=== PATIENT | female | born 1945 | race Caucasian/White ===

== ENCOUNTER → 2022-02-03 | Outpatient (CLI) | payer MEDICARE, BC | LOC: M RAD 09:30 | PROVIDERS: ATTEND Family Medicine | DX: R60.9 Edema, unspecified (principal) ==

== ENCOUNTER → 2024-05-11 | Outpatient (CLI) | payer MEDICARE, BC | LOC: M RAD 11:43 | PROVIDERS: ATTEND Urology | DX: N39.41 Urge incontinence (principal); N28.89 Other specified disorders of kidney and ureter ==

== ENCOUNTER → 2024-10-23 | Outpatient (REF) | payer MEDICARE, BC ==
[~2024-10-23] MED LIST: AMLO1TAB24; BACTDSTA; CLOP75TA2; COLA100C5 PO; DOXY100C3; GABA-1490; LEFL20TA15; METH-855; MIRA3350 PO; PANT40TA29; PRED10TA2
[2024-10-23 18:30] LABS: APPEARANCE, URINE CLOUDY (CLEAR); BACTERIA, URINE AUTO 1+ (NEGATIVE); BILIRUBIN, URINE AUTO NEGATIVE (NEGATIVE); BLOOD, URINE BLOOD NEGATIVE (NEGATIVE); COLOR, URINE YELLOW (YELLOW); GLUCOSE, URINE (UA) AUTO NEGATIVE (NEGATIVE); KETONE, URINE AUTO TRACE mg/dL (NEGATIVE); LEUKOCYTE ESTERASE, URINE AUTO 3+ (NEGATIVE); MUCUS, URINE SMALL (NEGATIVE); NITRITE, URINE AUTO POSITIVE (NEGATIVE); PROTEIN, URINE AUTO NEGATIVE (NEGATIVE); RBC, URINE AUTO 2 /HPF (0-3); SPECIFIC GRAVITY URINE AUTO 1.006 (1.002-1.035); SQUAMOUS EPITHELIAL CELL UR AU 0 /HPF (0-6); UROBILINOGEN, URINE AUTO 0.2 mg/dL (0.0-2.0); WBC, URINE AUTO TNTC /HPF (0-3)
== END ==
LOC: M SMT 17:19
PROVIDERS: ATTEND Urology
DX: R33.9 Retention of urine, unspecified (principal)

== ENCOUNTER 2024-10-29 11:20 | Emergency (ER) | payer MEDICARE, BC ==
[~2024-10-29] VITALS: Ht 167.6 cm; Wt 81.0 kg
[2024-10-29] MEDS ORDERED: METH-855 (11:45)
[2024-10-29] MEDS ORDERED: AMLO1TAB24 (11:45)
[2024-10-29] MEDS ORDERED: PANT40TA29 (11:45)
[2024-10-29] MEDS ORDERED: BACTDSTA (11:45)
[2024-10-29] MEDS ORDERED: CLOP75TA2 (11:45)
[2024-10-29] MEDS ORDERED: DOXY100C3 (11:45)
[2024-10-29] MEDS ORDERED: LEFL20TA15 (11:45)
[2024-10-29] MEDS ORDERED: PRED10TA2 (11:45)
[2024-10-29] MEDS ORDERED: GABA-1490 (11:45)
[2024-10-29 12:12] LABS: BASO # 0.1 10^3/uL (0.0-0.2); BASO % 0.9 % (0.0-1.0); EOS % 0.5 % (0.0-3.0); HEMATOCRIT 38.4 % (36.0-47.0); HEMOGLOBIN 12.8 g/dl (12.0-15.5); LYMPH # 1.7 10^3/uL (1.5-5.0); LYMPH % 22.2 % (24.0-44.0); MEAN CORPUSCULAR HEMOGLOBIN 30.8 pg (27.0-33.0); MEAN CORPUSCULAR HGB CONC 33.3 g/dl (32.0-36.5); MEAN CORPUSCULAR VOLUME 92.3 fl (80.0-96.0); MONO % 13.2 % (2.0-8.0); NEUTROPHILS # 4.7 10^3/uL (1.5-8.5); NEUTROPHILS % 62.9 % (36.0-66.0); PLATELET COUNT, AUTOMATED 339 10^3/uL (150-450); RED BLOOD COUNT 4.16 10^6/uL (4.00-5.40); WHITE BLOOD COUNT 7.4 10^3/uL (4.0-10.0)
[2024-10-29 12:40] LABS: LIPASE 29 U/L (12-53)
[2024-10-29 13:02] LABS: ALBUMIN 3.5 G/DL (3.2-5.2); ALKALINE PHOSPHATASE 75 U/L (35-104); ALT/SGPT 21 U/L (7.0-40); AST/SGOT 22 U/L (<34); BILIRUBIN,DIRECT < 0.1 MG/DL (<0.4); BILIRUBIN,TOTAL 0.3 MG/DL (0.3-1.2); TOTAL PROTEIN 6.8 G/DL (5.7-8.2)
[2024-10-29 13:44] LABS: FREE T4 1.19 NG/DL (0.89-1.76); THYROID STIMULATING HORMONE 2.387 uIU/ML (0.55-4.78)
[2024-10-29 13:46] LABS: KETONE, URINE AUTO RFX NEGATIVE (NEGATIVE); LEUKOCYTE ESTERASE UR AUTO RFX NEGATIVE (NEGATIVE); MUCUS, URINE RFX SMALL (NEGATIVE); NITRITE, URINE AUTO RFX NEGATIVE (NEGATIVE); RBC, URINE AUTO RFX 1 /HPF (0-3); SQUAM EPITHELIAL CELL UR AURFX 0 /HPF (0-6); WBC, URINE AUTO RFX 4 /HPF (0-3)
[2024-10-29 14:09] VITALS: BP 135/72
[2024-10-29 14:20] VITALS: O2SAT 95
[2024-10-29 14:39] VITALS: TEMP 97.2
[2024-10-29] MEDS ORDERED: MIRA3350 PO (14:41)
[2024-10-29] MEDS ORDERED: COLA100C5 PO (14:41)
== END 2024-10-29 15:04 | disposition home or self-care (01) ==
LOC: M ED 11:20 → EDBD 11:20 → M ED 15:04
DX: R55 Syncope and collapse (principal); K59.00 Constipation, unspecified; W19.XXXA Unspecified fall, initial encounter; E78.5 Hyperlipidemia, unspecified; K91.5 Postcholecystectomy syndrome; Z86.73 Personal history of transient ischemic attack (TIA), and cerebral infarction without residual deficits; Z79.899 Other long term (current) drug therapy; Z79.52 Long term (current) use of systemic steroids; Y99.9 Unspecified external cause status

== ENCOUNTER → 2024-12-05 | Outpatient (REF) | payer MEDICARE, BC ==
[2024-12-05 17:36] LABS: APPEARANCE, URINE CLOUDY (CLEAR); BACTERIA, URINE AUTO 1+ (NEGATIVE); BILIRUBIN, URINE AUTO NEGATIVE (NEGATIVE); BLOOD, URINE BLOOD 2+ (NEGATIVE); COLOR, URINE YELLOW (YELLOW); GLUCOSE, URINE (UA) AUTO NEGATIVE (NEGATIVE); KETONE, URINE AUTO NEGATIVE (NEGATIVE); LEUKOCYTE ESTERASE, URINE AUTO 3+ (NEGATIVE); MUCUS, URINE SMALL (NEGATIVE); NITRITE, URINE AUTO POSITIVE (NEGATIVE); PROTEIN, URINE AUTO 1+ mg/dL (NEGATIVE); RBC, URINE AUTO 14 /HPF (0-3); SPECIFIC GRAVITY URINE AUTO 1.023 (1.002-1.035); SQUAMOUS EPITHELIAL CELL UR AU 3 /HPF (0-6); UROBILINOGEN, URINE AUTO 0.2 mg/dL (0.0-2.0); WBC, URINE AUTO TNTC /HPF (0-3)
== END ==
LOC: M SMT 16:56
PROVIDERS: ATTEND Urology
DX: R33.9 Retention of urine, unspecified (principal)

== ENCOUNTER 2025-03-19 17:19 | Inpatient (IN) | payer MEDICARE, BC ==
[~2025-03-19] VITALS: Ht 167.6 cm; Wt 81.8 kg
[~2025-03-19 17:19] MED LIST changes: -AMLO1TAB24; +AMLO1TAB24 PO; +CEVI1CAP PO; -CLOP75TA2; +CLOP75TA2 PO; +DOCU100C16 PO; +DONE10TA90 PO; +FLUTISP NARES; -GABA-1490; +GABA-1490 PO; +HYDR-3713 PO; -LEFL20TA15; +LEFL20TA15 PO; +LEVO1TAB39 PO; -METH-855; +METH-855 PO; +MULTTAB61 PO; -PANT40TA29; +PANT40TA29 PO; +POLY510P14; +PRES1CAP PO; +ROSU10TA61 PO; +ZINC25CA2 PO
[2025-03-19 18:57] LABS: BASO # 0.1 10^3/uL (0.0-0.2); BASO % 1.2 % (0.0-1.0); EOS # 0.1 10^3/uL (0.0-0.5); EOS % 2.2 % (0.0-3.0); LYMPH # 1.0 10^3/uL (1.5-5.0); LYMPH % 19.8 % (24.0-44.0); MONO # 0.8 10^3/uL (0.0-0.8); MONO % 15.0 % (2.0-8.0); NEUTROPHILS # 3.1 10^3/uL (1.5-8.5); NEUTROPHILS % 61.6 % (36.0-66.0); PLATELET COUNT, AUTOMATED 336 10^3/uL (150-450)
[2025-03-19 19:32] LABS: CALCIUM LEVEL 8.6 MG/DL (8.3-10.6); CARBON DIOXIDE LEVEL 29 MMOL/L (20-31); CHLORIDE LEVEL 97 MMOL/L (98-107); CREATININE FOR GFR 0.56 MG/DL (0.55-1.30); GLOMERULAR FILTRATION RATE > 90.0 (>32); POTASSIUM SERUM 4.3 MMOL/L (3.5-5.1); SODIUM LEVEL 134 MMOL/L (136-145)
[2025-03-19 19:37] LABS: KETONE, URINE AUTO RFX NEGATIVE (NEGATIVE); LEUKOCYTE ESTERASE UR AUTO RFX 1+ (NEGATIVE); NITRITE, URINE AUTO RFX NEGATIVE (NEGATIVE); RBC, URINE AUTO RFX 3 /HPF (0-3); SQUAM EPITHELIAL CELL UR AURFX 1 /HPF (0-6); WBC, URINE AUTO RFX 3 /HPF (0-3)
[2025-03-19] MEDS ORDERED: ACET-897 PO (22:53)
[2025-03-19] MEDS ORDERED: CLOP75TA99 PO (22:53)
[2025-03-19] MEDS ORDERED: OYST1TAB PO (22:53)
[2025-03-19] MEDS ORDERED: NYST0.1C TOP (22:53)
[2025-03-19] MEDS ORDERED: ASCO500T PO (22:53)
[2025-03-19] MEDS ORDERED: HOME MED LIST COMPLETE! XX SCH (22:55)
[2025-03-20] MEDS ORDERED: FLUTICASONE PROPIONATE 0.05% NASAL SPRAY 16 GM NARES PRN (00:20)
[2025-03-20] MEDS ORDERED: MAALOX 30 ML SUSP *UDC PO PRN (00:20)
[2025-03-20] MEDS ORDERED: MOM 30 ML SUSPENSION UDC PO PRN (00:20)
[2025-03-20] MEDS ORDERED: NYSTATIN CREAM 15 GM TOP PRN (00:20)
[2025-03-20] MEDS ORDERED: ACETAMINOPHEN 325 MG TAB PO PRN (00:20)
[2025-03-20 06:40] LABS: PLATELET COUNT, AUTOMATED 337 10^3/uL (150-450)
[2025-03-20 07:15] LABS: ALT/SGPT 14 U/L (7.0-40); AST/SGOT 20 U/L (<34); CALCIUM LEVEL 9.3 MG/DL (8.3-10.6); CARBON DIOXIDE LEVEL 30 MMOL/L (20-31); CHLORIDE LEVEL 98 MMOL/L (98-107); CREATININE FOR GFR 0.53 MG/DL (0.55-1.30); GLOMERULAR FILTRATION RATE > 90.0 (>32); MAGNESIUM LEVEL 1.9 MG/DL (1.8-2.4); POTASSIUM SERUM 4.2 MMOL/L (3.5-5.1); SODIUM LEVEL 137 MMOL/L (136-145)
[2025-03-20] MEDS: OYSTER SHELL CALCIUM 500 MG TAB PO SCH (09:11)
[2025-03-20] MEDS: METHENAMINE HIPPURATE 1 GM TABLET PO SCH (09:11)
[2025-03-20] MEDS: DONEPEZIL 5 MG TAB PO SCH (09:11)
[2025-03-20] MEDS: ASCORBIC ACID 500 MG TAB PO SCH (09:13)
[2025-03-20] MEDS: ROSUVASTATIN 10 MG TAB PO SCH (09:13)
[2025-03-20] MEDS: PANTOPRAZOLE 40MG TAB PO SCH (09:13)
[2025-03-20] MEDS: CLOPIDOGREL 75 MG TAB PO SCH (09:13)
[2025-03-20] MEDS: DOCUSATE SODIUM 100 MG CAPSULE PO SCH (09:13)
[2025-03-20] MEDS: GABAPENTIN 300 MG CAP PO SCH (09:13)
[2025-03-20] MEDS: amLODIPine 5 MG TAB PO SCH (09:13)
[2025-03-20] MEDS: ACETAMINOPHEN 500 MG TAB PO SCH (12:00)
[2025-03-20 14:22] VITALS: BP 146/100; TEMP 98.1; O2SAT 90
[2025-03-20] MEDS: traMADol 50 MG TAB PO ONE (15:18)
[2025-03-20] MEDS: DICLOFENAC EPOLAMINE 1.3% PATCH TOP SCH (15:18)
[2025-03-20] MEDS: ANALGESIC BALM CRM 3 OZ TOP SCH (17:44)
[2025-03-20] MEDS ORDERED: RIVAROXABAN 10MG TAB PO SCH (18:00)
[2025-03-20 18:49] VITALS: BP 152/95
[2025-03-20 19:52] VITALS: BP 148/86; TEMP 98.1; O2SAT 95
[2025-03-20] MEDS: LIDOCAINE 5% PATCH TD SCH (20:23)
[2025-03-21 04:29] VITALS: BP 145/91; TEMP 97.9; O2SAT 96
[2025-03-21] MEDS ORDERED: NYSTATIN 100,000 UNITS/GM TOPICAL PWD 15 GM TOP SCH (09:00)
[2025-03-21] MEDS: NYSTATIN 100,000 UNITS/GM TOPICAL PWD 15 GM TOP SCH (09:00)
[2025-03-21] MEDS: traMADol 50 MG TAB PO PRN (09:49)
[2025-03-21 12:00] VITALS: BP 141/70; TEMP 98.1; O2SAT 94
[2025-03-21] MEDS: AMOXICILLIN 875 MG TAB PO SCH (12:19)
[2025-03-21 20:38] VITALS: BP 142/83; TEMP 98.1; O2SAT 96
[2025-03-22 04:30] VITALS: BP 144/79; TEMP 97.2; O2SAT 96
[2025-03-22 08:13] VITALS: BP 144/80; TEMP 97.2; O2SAT 98
[2025-03-22 08:43] LABS: CALCIUM LEVEL 8.8 MG/DL (8.3-10.6); CARBON DIOXIDE LEVEL 27 MMOL/L (20-31); CHLORIDE LEVEL 98 MMOL/L (98-107); CREATININE FOR GFR 0.50 MG/DL (0.55-1.30); GLOMERULAR FILTRATION RATE > 90.0 (>32); POTASSIUM SERUM 4.5 MMOL/L (3.5-5.1); SODIUM LEVEL 137 MMOL/L (136-145)
[2025-03-22] MEDS: KETOROLAC 30 MG/ML 1 ML VIAL IV ONE ×2 (09:29→14:19)
[2025-03-22] MEDS: traMADol 50 MG TAB PO ONE ×2 (09:29→14:19)
[2025-03-22 12:00] VITALS: BP 148/79; TEMP 98.1; O2SAT 95
[2025-03-22 20:41] VITALS: BP 139/84; TEMP 98.2; O2SAT 94
[2025-03-23 04:06] VITALS: BP 156/85; TEMP 97.7; O2SAT 96
[2025-03-23] MEDS: amLODIPine 10 MG TAB PO ONE (06:22)
[2025-03-23] MEDS: KETOROLAC 30 MG/ML 1 ML VIAL IV ONE (06:23)
[2025-03-23] MEDS: traMADol 50 MG TAB PO ONE (06:23)
[2025-03-23] MEDS: ANALGESIC BALM CRM 3 OZ TOP ONE (06:27)
[2025-03-23 06:50] LABS: CALCIUM LEVEL 8.5 MG/DL (8.3-10.6); CARBON DIOXIDE LEVEL 27 MMOL/L (20-31); CHLORIDE LEVEL 96 MMOL/L (98-107); CREATININE FOR GFR 0.54 MG/DL (0.55-1.30); GLOMERULAR FILTRATION RATE > 90.0 (>32); POTASSIUM SERUM 4.4 MMOL/L (3.5-5.1); SODIUM LEVEL 133 MMOL/L (136-145)
[2025-03-23 07:40] LABS: MAGNESIUM LEVEL 1.7 MG/DL (1.8-2.4)
[2025-03-23 12:11] VITALS: BP 145/96; TEMP 97.9; O2SAT 87
[2025-03-23] MEDS: traMADol 50 MG TAB PO PRN (12:48)
[2025-03-23] MEDS: MAGNESIUM OXIDE 400 MG TAB PO ONE (17:42)
[2025-03-23 20:59] VITALS: BP 145/85; TEMP 97.7; O2SAT 91
[2025-03-24 04:15] VITALS: BP 162/88; TEMP 97.7; O2SAT 95
[2025-03-24] MEDS: traMADol 50 MG TAB PO ONE ×2 (08:00→15:50)
[2025-03-24] MEDS: MAGNESIUM OXIDE 400 MG TAB PO SCH (08:47)
[2025-03-24] MEDS: KETOROLAC 30 MG/ML 1 ML VIAL IV ONE (08:48)
[2025-03-24] MEDS ORDERED: traMADol 50 MG TAB PO ONE (09:00)
[2025-03-24 09:54] LABS: CALCIUM LEVEL 8.9 MG/DL (8.3-10.6); CARBON DIOXIDE LEVEL 27 MMOL/L (20-31); CHLORIDE LEVEL 97 MMOL/L (98-107); CREATININE FOR GFR 0.51 MG/DL (0.55-1.30); GLOMERULAR FILTRATION RATE > 90.0 (>32); MAGNESIUM LEVEL 1.7 MG/DL (1.8-2.4); POTASSIUM SERUM 4.2 MMOL/L (3.5-5.1); SODIUM LEVEL 135 MMOL/L (136-145)
[2025-03-24 12:19] VITALS: BP 163/90; TEMP 97.7; O2SAT 90
[2025-03-24 19:32] VITALS: BP 155/85; TEMP 98.1; O2SAT 96
[2025-03-25 03:38] VITALS: BP 178/66; TEMP 97.3; O2SAT 94
[2025-03-25 03:53] VITALS: BP 178/90
[2025-03-25] MEDS: ISOSORBIDE MONONITRATE 60 MG XR TAB PO ONE (06:53)
[2025-03-25 07:36] LABS: CALCIUM LEVEL 9.4 MG/DL (8.3-10.6); CARBON DIOXIDE LEVEL 29 MMOL/L (20-31); CHLORIDE LEVEL 96 MMOL/L (98-107); CREATININE FOR GFR 0.54 MG/DL (0.55-1.30); GLOMERULAR FILTRATION RATE > 90.0 (>32); MAGNESIUM LEVEL 1.9 MG/DL (1.8-2.4); POTASSIUM SERUM 4.4 MMOL/L (3.5-5.1); SODIUM LEVEL 136 MMOL/L (136-145)
[2025-03-25] MEDS ORDERED: traMADol 50 MG TAB PO SCH (09:00)
[2025-03-25] MEDS: MAGNESIUM OXIDE 400 MG TAB PO SCH (09:44)
[2025-03-25] MEDS: traMADol 50 MG TAB PO ONE (09:44)
[2025-03-25] MEDS: KETOROLAC 30 MG/ML 1 ML VIAL IV ONE (09:45)
[2025-03-25] MEDS: traMADol 50 MG TAB PO SCH (13:25)
[2025-03-25 19:34] VITALS: BP 143/74; TEMP 98.2; O2SAT 95
[2025-03-25] MEDS: amLODIPine 10 MG TAB PO SCH (21:39)
[2025-03-26 03:52] VITALS: BP 146/76; TEMP 97.5; O2SAT 97
[2025-03-26 08:02] VITALS: BP 144/76
[2025-03-26] MEDS: ISOSORBIDE MONONITRATE 60 MG XR TAB PO SCH (08:02)
[2025-03-26] MEDS ORDERED: NYST10006 TOP (10:55)
[2025-03-26] MEDS ORDERED: COLA100C5 PO (10:55)
[2025-03-26] MEDS ORDERED: DICL1PAT6 TOP (10:55)
[2025-03-26] MEDS ORDERED: AMOX875T PO (10:55)
[2025-03-26] MEDS ORDERED: AMLO1TAB24 PO (10:55)
[2025-03-26] MEDS ORDERED: LIDO5TD TD (10:55)
[2025-03-26] MEDS ORDERED: TRAM50TA2 PO (10:55)
[2025-03-26] MEDS ORDERED: MAGN400T33 PO (10:55)
== END 2025-03-26 12:29 | DRG 699 ==
LOC: M ED 17:19 → EDBD 17:19 → M ED INP 17:20 → M MSPAV 03-20 14:20 → OBSVTOIN 03-22 13:46
PROVIDERS: ADMIT Student in an Organized Health Care Education/Training Program; ATTEND Internal Medicine Nephrology
DX: T83.518A Infection and inflammatory reaction due to other urinary catheter, initial encounter (principal); N39.0 Urinary tract infection, site not specified; Y84.6 Urinary catheterization as the cause of abnormal reaction of the patient, or of later complication, without mention of misadventure at the time of the procedure; I10 Essential (primary) hypertension; M06.9 Rheumatoid arthritis, unspecified; K21.9 Gastro-esophageal reflux disease without esophagitis; R53.1 Weakness; R29.6 Repeated falls; R54 Age-related physical debility; M47.816 Spondylosis without myelopathy or radiculopathy, lumbar region; M16.0 Bilateral primary osteoarthritis of hip; G89.29 Other chronic pain; R33.9 Retention of urine, unspecified; R53.81 Other malaise; F03.90 Unspecified dementia, unspecified severity, without behavioral disturbance, psychotic disturbance, mood disturbance, and anxiety; M25.461 Effusion, right knee; M17.0 Bilateral primary osteoarthritis of knee; M54.50 Low back pain, unspecified; M48.061 Spinal stenosis, lumbar region without neurogenic claudication; M41.9 Scoliosis, unspecified; M25.462 Effusion, left knee; R26.89 Other abnormalities of gait and mobility; B95.2 Enterococcus as the cause of diseases classified elsewhere; Z79.02 Long term (current) use of antithrombotics/antiplatelets; Z79.899 Other long term (current) drug therapy; Z88.8 Allergy status to other drugs, medicaments and biological substances; Z87.440 Personal history of urinary (tract) infections; Z86.73 Personal history of transient ischemic attack (TIA), and cerebral infarction without residual deficits; Z90.49 Acquired absence of other specified parts of digestive tract

== ENCOUNTER 2025-05-23 10:33 | Emergency (ER) | payer MEDICARE, BC ==
[~2025-05-23] VITALS: Ht 160 cm; Wt 78.0 kg
[~2025-05-23 10:33] MED LIST changes: +ACET-897 PO; +AMOX875T PO; +ASCO500T PO; +CLOP75TA99 PO; +DICL1PAT6 TOP; +LIDO5TD TD; +MAGN400T33 PO; +METH-1100 PO; -METH-855 PO; +NYST0.1C TOP; +NYST10006 TOP; +OYST1TAB PO; +TRAM50TA2 PO
[2025-05-23 13:19] VITALS: BP 123/63; TEMP 97.5; O2SAT 94
== END 2025-05-23 14:40 | disposition home or self-care (01) ==
LOC: M ED 10:33 → EDBD 10:33 → M ED 14:40
DX: M75.101 Unspecified rotator cuff tear or rupture of right shoulder, not specified as traumatic (principal); M19.011 Primary osteoarthritis, right shoulder; I10 Essential (primary) hypertension; K21.9 Gastro-esophageal reflux disease without esophagitis; Z79.1 Long term (current) use of non-steroidal anti-inflammatories (NSAID); Z79.899 Other long term (current) drug therapy; Z79.810 Long term (current) use of selective estrogen receptor modulators (SERMs)

== ENCOUNTER 2025-06-27 20:48 | Observation (INO) | payer MEDICARE, BC ==
[~2025-06-27] VITALS: Ht 167.6 cm; Wt 81.9 kg
[~2025-06-27 20:48] MED LIST changes: -ROSU10TA61 PO; +ROSU10TA90 PO
[2025-06-27] MEDS: NS 500 ML IV ONE (21:56)
[2025-06-27 22:12] LABS: BASO # 0.0 10^3/uL (0.0-0.2); BASO % 0.6 % (0.0-1.0); EOS # 0.2 10^3/uL (0.0-0.5); EOS % 3.4 % (0.0-3.0); LYMPH # 0.7 10^3/uL (1.5-5.0); LYMPH % 9.7 % (24.0-44.0); MONO # 0.7 10^3/uL (0.0-0.8); MONO % 9.7 % (2.0-8.0); NEUTROPHILS # 5.4 10^3/uL (1.5-8.5); NEUTROPHILS % 76.2 % (36.0-66.0); PLATELET COUNT, AUTOMATED 371 10^3/uL (150-450)
[2025-06-27 22:18] LABS: KETONE, URINE AUTO RFX NEGATIVE (NEGATIVE); LEUKOCYTE ESTERASE UR AUTO RFX 3+ (NEGATIVE); MUCUS, URINE RFX SMALL (NEGATIVE); NITRITE, URINE AUTO RFX NEGATIVE (NEGATIVE); RBC, URINE AUTO RFX 59 /HPF (0-3); SQUAM EPITHELIAL CELL UR AURFX 0 /HPF (0-6); WBC, URINE AUTO RFX TNTC /HPF (0-3)
[2025-06-27 22:49] LABS: ALT/SGPT 20 U/L (7.0-40); AST/SGOT 27 U/L (<34); CALCIUM LEVEL 9.1 MG/DL (8.3-10.6); CARBON DIOXIDE LEVEL 26 MMOL/L (20-31); CHLORIDE LEVEL 101 MMOL/L (98-107); CREATININE FOR GFR 0.42 MG/DL (0.55-1.30); GLOMERULAR FILTRATION RATE > 90.0 (>32); POTASSIUM SERUM 4.1 MMOL/L (3.5-5.1); SODIUM LEVEL 136 MMOL/L (136-145)
[2025-06-27] MEDS: PIPERACILLIN/TAZOBACTAM SOD 4.5 GM in DEXTROSE 5% (D5W) ADV/MINI-BAG 50 ML IV ONE (22:50)
[2025-06-28 07:41] LABS: PLATELET COUNT, AUTOMATED 329 10^3/uL (150-450)
[2025-06-28 08:09] LABS: CALCIUM LEVEL 8.6 MG/DL (8.3-10.6); CARBON DIOXIDE LEVEL 27 MMOL/L (20-31); CHLORIDE LEVEL 102 MMOL/L (98-107); CREATININE FOR GFR 0.42 MG/DL (0.55-1.30); GLOMERULAR FILTRATION RATE > 90.0 (>32); POTASSIUM SERUM 4.1 MMOL/L (3.5-5.1); SODIUM LEVEL 136 MMOL/L (136-145)
[2025-06-28] MEDS ORDERED: traMADol 50 MG TAB PO PRN (08:25)
[2025-06-28] MEDS: ENOXAPARIN 40 MG/0.4 ML SYRINGE (J1650 PER 10MG) SC SCH (08:32)
[2025-06-28] MEDS: PANTOPRAZOLE 40MG VIAL IV SCH (08:32)
[2025-06-28] MEDS ORDERED: DOCU100C16 PO (08:54)
[2025-06-28] MEDS ORDERED: NYST1POW3 TOP (09:02)
[2025-06-28] MEDS ORDERED: LIDO1ADH93 TD (09:02)
[2025-06-28] MEDS ORDERED: BACT800T5 PO (09:06)
[2025-06-28] MEDS ORDERED: TRAM50TA2 PO (09:06)
[2025-06-28] MEDS ORDERED: MIRA3350 PO (09:07)
[2025-06-28] MEDS ORDERED: MED REC IN PROGRESS XX SCH (09:20)
[2025-06-28] MEDS ORDERED: HOME MED LIST COMPLETE! XX SCH (10:25)
[2025-06-28 10:30] VITALS: BP 128/90; TEMP 97.2; O2SAT 95
[2025-06-28] MEDS: ONDANSETRON 4MG/2ML VIAL IV PRN (10:59)
[2025-06-28] MEDS: GABAPENTIN 300 MG CAP PO SCH (11:01)
[2025-06-28] MEDS: CLOPIDOGREL 75 MG TAB PO SCH (11:01)
[2025-06-28] MEDS: SENNOSIDES/DOCUSATE SODIUM 8.6 MG/50MG TAB PO SCH (11:01)
[2025-06-28] MEDS: amLODIPine 5 MG TAB PO SCH (11:02)
[2025-06-28] MEDS: ROSUVASTATIN 10 MG TAB PO SCH (11:02)
[2025-06-28 14:00] VITALS: BP 132/88; TEMP 97.3; O2SAT 98
[2025-06-28] MEDS: NYSTATIN 100,000 UNITS/GM TOPICAL PWD 15 GM TOP SCH (15:23)
[2025-06-28] MEDS: PIPERACILLIN/TAZOBACTAM SOD 3.375 GM in DEXTROSE 5% (D5W) ADV/MINI-BAG 50 ML IV SCH (15:23)
[2025-06-28 19:43] VITALS: BP 120/55; TEMP 97.2; O2SAT 96
[2025-06-29 05:05] VITALS: BP 113/64; TEMP 97; O2SAT 94
[2025-06-29 07:17] LABS: BASO # 0.1 10^3/uL (0.0-0.2); BASO % 1.0 % (0.0-1.0); EOS # 0.3 10^3/uL (0.0-0.5); EOS % 5.5 % (0.0-3.0); LYMPH # 0.8 10^3/uL (1.5-5.0); LYMPH % 15.6 % (24.0-44.0); MONO # 0.6 10^3/uL (0.0-0.8); MONO % 12.2 % (2.0-8.0); NEUTROPHILS # 3.3 10^3/uL (1.5-8.5); NEUTROPHILS % 65.5 % (36.0-66.0); PLATELET COUNT, AUTOMATED 339 10^3/uL (150-450)
[2025-06-29 07:37] LABS: CALCIUM LEVEL 9.0 MG/DL (8.3-10.6); CARBON DIOXIDE LEVEL 26 MMOL/L (20-31); CHLORIDE LEVEL 100 MMOL/L (98-107); CREATININE FOR GFR 0.45 MG/DL (0.55-1.30); GLOMERULAR FILTRATION RATE > 90.0 (>32); POTASSIUM SERUM 4.3 MMOL/L (3.5-5.1); SODIUM LEVEL 135 MMOL/L (136-145)
[2025-06-29 14:00] VITALS: BP 138/82; TEMP 97.2; O2SAT 97
[2025-06-29 19:41] VITALS: BP 146/90; TEMP 97.5; O2SAT 95
[2025-06-29] MEDS: ACETAMINOPHEN 325 MG TAB PO PRN (20:20)
[2025-06-30 04:54] VITALS: BP 153/91; TEMP 97.3; O2SAT 94
[2025-06-30 07:07] LABS: BASO # 0.1 10^3/uL (0.0-0.2); BASO % 0.8 % (0.0-1.0); EOS # 0.2 10^3/uL (0.0-0.5); EOS % 3.3 % (0.0-3.0); LYMPH # 0.9 10^3/uL (1.5-5.0); LYMPH % 13.8 % (24.0-44.0); MONO # 0.9 10^3/uL (0.0-0.8); MONO % 13.8 % (2.0-8.0); NEUTROPHILS # 4.3 10^3/uL (1.5-8.5); NEUTROPHILS % 68.0 % (36.0-66.0); PLATELET COUNT, AUTOMATED 344 10^3/uL (150-450)
[2025-06-30 07:38] LABS: CALCIUM LEVEL 8.4 MG/DL (8.3-10.6); CARBON DIOXIDE LEVEL 26 MMOL/L (20-31); CHLORIDE LEVEL 102 MMOL/L (98-107); CREATININE FOR GFR 0.38 MG/DL (0.55-1.30); GLOMERULAR FILTRATION RATE > 90.0 (>32); POTASSIUM SERUM 3.4 MMOL/L (3.5-5.1); SODIUM LEVEL 137 MMOL/L (136-145)
[2025-06-30] MEDS: POTASSIUM CHLORIDE 10% LIQ 20MEQ/15ML UDC PO ONE (11:58)
[2025-06-30 15:15] VITALS: BP 145/91; TEMP 97.3; O2SAT 94
[2025-06-30 15:57] VITALS: BP 135/87
[2025-06-30 19:55] VITALS: BP 136/69; TEMP 97.7; O2SAT 92
[2025-07-01 04:47] VITALS: BP 144/80; TEMP 97.2; O2SAT 94
[2025-07-01 07:04] LABS: BASO # 0.1 10^3/uL (0.0-0.2); BASO % 0.8 % (0.0-1.0); EOS # 0.2 10^3/uL (0.0-0.5); EOS % 2.7 % (0.0-3.0); LYMPH # 1.2 10^3/uL (1.5-5.0); LYMPH % 18.1 % (24.0-44.0); MONO # 1.1 10^3/uL (0.0-0.8); MONO % 17.0 % (2.0-8.0); NEUTROPHILS # 4.0 10^3/uL (1.5-8.5); NEUTROPHILS % 60.8 % (36.0-66.0)
[2025-07-01 07:23] LABS: CALCIUM LEVEL 9.2 MG/DL (8.3-10.6); CARBON DIOXIDE LEVEL 24 MMOL/L (20-31); CHLORIDE LEVEL 104 MMOL/L (98-107); CREATININE FOR GFR 0.53 MG/DL (0.55-1.30); GLOMERULAR FILTRATION RATE > 90.0 (>32); POTASSIUM SERUM 4.0 MMOL/L (3.5-5.1); SODIUM LEVEL 138 MMOL/L (136-145)
[2025-07-01 07:24] LABS: PLATELET COUNT, AUTOMATED 245 10^3/uL (150-450)
[2025-07-01 10:07] VITALS: BP 128/82
[2025-07-01 10:34] VITALS: BP 118/68; TEMP 97.3; O2SAT 93
[2025-07-01] MEDS ORDERED: CEFP200T PO (12:27)
[2025-07-01] MEDS: METHENAMINE HIPPURATE 1 GM TABLET PO SCH (13:19)
[2025-07-01 14:00] VITALS: BP 118/68; TEMP 97.3; O2SAT 93
== END 2025-07-01 15:15 | disposition home health service (06) ==
LOC: M ED 20:48 → EEVIPCON 20:49 → M ED INP 20:49 → M MS5PR 06-28 10:30
PROVIDERS: ADMIT Student in an Organized Health Care Education/Training Program; ATTEND Internal Medicine
DX: N39.0 Urinary tract infection, site not specified (principal); Z96.0 Presence of urogenital implants; B96.4 Proteus (mirabilis) (morganii) as the cause of diseases classified elsewhere; B96.20 Unspecified Escherichia coli [E. coli] as the cause of diseases classified elsewhere; B95.2 Enterococcus as the cause of diseases classified elsewhere; B96.1 Klebsiella pneumoniae [K. pneumoniae] as the cause of diseases classified elsewhere; Z79.2 Long term (current) use of antibiotics; R11.2 Nausea with vomiting, unspecified; F03.90 Unspecified dementia, unspecified severity, without behavioral disturbance, psychotic disturbance, mood disturbance, and anxiety; L89.159 Pressure ulcer of sacral region, unspecified stage; I10 Essential (primary) hypertension; K21.9 Gastro-esophageal reflux disease without esophagitis; M06.9 Rheumatoid arthritis, unspecified; M48.061 Spinal stenosis, lumbar region without neurogenic claudication; Z91.81 History of falling; Z87.440 Personal history of urinary (tract) infections; R33.8 Other retention of urine; Z90.49 Acquired absence of other specified parts of digestive tract; Z86.73 Personal history of transient ischemic attack (TIA), and cerebral infarction without residual deficits; Z88.8 Allergy status to other drugs, medicaments and biological substances; Z79.899 Other long term (current) drug therapy; Z79.02 Long term (current) use of antithrombotics/antiplatelets
CPT/HCPCS: 36415; 80048; 80076; 81001; 83690; 85025; 85027; 87086; 87088; 87186; 87486; 87581; 87633; 87798; 96365; 96366; 96367; 96372; 96375; 96376; 99285; G0378; J1650; J2405; J2470; J2543